=== PATIENT | female | born 1970 | race Caucasian/White ===

== ENCOUNTER → 2020-04-03 | Outpatient (CLI) | payer OTHER ==
[~2020-04-03] MED LIST: ADVAIR HFA115 MCG/21 INH; ALBUTEROL; COLACE100 MG PO; FLAGYL500 MG PO; KEFLEX500 MG PO; NORCO 5-325 TA1 EACH PO; PROZAC 20 MG20 M1 PO; ROBINUL FORTE2 MG PO; SYMBICORT160 MCG/4. INH; ULTRAM 50MG TAB50 MG PO; ZEGERID 40 MG1 EACH PO; ZOFRAN ODT4 MG PO
== END ==
LOC: LAB 14:02
PROVIDERS: ATTEND Nurse Practitioner
DX: U07.1 COVID-19 (principal)

== ENCOUNTER 2020-06-20 10:19 | Emergency (ER) | payer OTHER ==
[~2020-06-20] VITALS: Ht 162.6 cm; Wt 108.0 kg
[2020-06-20] MEDS ORDERED: SPIRONOLACTONE100 M1 PO (11:02)
[2020-06-20] MEDS ORDERED: BREO ELLIPTA 11 EACH INH (11:03)
[2020-06-20] MEDS ORDERED: TRAMADOL 50 MG50 MG PO (11:03)
[2020-06-20 12:04] LABS: URINE BLOOD TRACE (Negative); URINE CLARITY CLOUDY; URINE COLOR YELLOW; URINE GLUCOSE-RANDOM* NEGATIVE (Negative); URINE KETONES TRACE (Negative); URINE LEUKOCYTES-REFLEX NEGATIVE (Negative); URINE NITRITE-REFLEX NEGATIVE (Negative); URINE PROTEIN (DIPSTICK) 1+ (Negative); URINE SPECIFIC GRAVITY >= 1.030 (1.005-1.035); URINE UROBILINOGEN 0.2 E.U./dl (0.2-1.0)
[2020-06-20 12:07] LABS: URINE BILIRUBIN NEGATIVE (Negative)
[2020-06-20 12:08] LABS: ICTOTEST (BILI CONFIRMATORY) Negative (Negative)
[2020-06-20 12:15] LABS: CASTS None Seen /LPF (None Seen); SQUAMOUS 4-10 Moderate /LPF (0-3)
[2020-06-20 12:16] LABS: BACTERIA-REFLEX 1-9 Few /HPF (None Seen); URINE RBC None Seen /HPF (0-2); URINE WBC-REFLEX 0-5 Rare /HPF (0-5)
[2020-06-20 12:18] LABS: CALCIUM OXALATE 4-10 Moderate /LPF (None Seen)
[2020-06-20 12:20] LABS: ABSOLUTE NEUTROPHILS 5.7 thou/uL (1.4-8.2); BASOPHILS 1.1 % (0.0-2.0); EOSINOPHILS 2.8 % (0.0-3.0); HEMATOCRIT 43.1 % (37.0-47.0); HEMOGLOBIN 13.8 gm/dL (12.0-15.0); LYMPHOCYTES 28.9 % (24.0-44.0); MCH 31.1 pg (26.0-34.0); MCV 97.1 fL (80.0-100.0); MONOCYTES 3.1 % (1.0-8.0); PLATELET COUNT 196 thou/uL (150-400); POLYS 64.1 % (36.0-66.0); RBC 4.44 mil/uL (4.20-5.00); RDW 13.9 % (10.5-14.5)
[2020-06-20 12:28] LABS: CREATININE 0.9 mg/dL (0.6-1.0); POTASSIUM 4.6 mmol/L (3.5-5.1)
[2020-06-20 12:34] LABS: ALBUMIN 3.9 g/dL (3.4-5.0); TOTAL BILIRUBIN 0.3 mg/dL (0.2-1.0); TOTAL PROTEIN 7.3 g/dL (6.4-8.2)
[2020-06-20] MEDS ORDERED: ZOFRAN ODT4 MG DISSOLVE (14:04)
[2020-06-20] MEDS ORDERED: NAPROSYN500 MG PO (14:04)
[2020-06-20] MEDS ORDERED: ULTRAM 50MG TAB50 MG PO (14:04)
[2020-06-20 14:09] VITALS: BP 132/78
== END 2020-06-20 14:09 | disposition home or self-care (01) ==
LOC: ER 10:19
PROVIDERS: Physician Assistant
DX: R10.11 Right upper quadrant pain (principal); Z90.710 Acquired absence of both cervix and uterus; Z79.899 Other long term (current) drug therapy; Z90.49 Acquired absence of other specified parts of digestive tract

== ENCOUNTER → 2021-06-22 | Outpatient (CLI) | payer OTHER ==
[~2021-06-22] MED LIST changes: +BREO ELLIPTA 11 EACH INH; +NAPROSYN500 MG PO; +SPIRONOLACTONE100 M1 PO; +TRAMADOL 50 MG50 MG PO; +ZOFRAN ODT4 MG DISSOLVE
== END ==
LOC: SJCVCIMAG 07:17
PROVIDERS: ATTEND Internal Medicine
DX: I35.1 Nonrheumatic aortic (valve) insufficiency (principal); R06.00 Dyspnea, unspecified; R00.2 Palpitations; I10 Essential (primary) hypertension